=== PATIENT | male | born 1960 | race Caucasian/White ===

== ENCOUNTER 2016-07-30 19:46 | Emergency (ER) | payer OTHER ==
[~2016-07-30] VITALS: Ht 172.7 cm; Wt 98.8 kg
[~2016-07-30 19:46] MED LIST: ASPI-558 PO
--- OUTSIDE RECORDS SUMMARY | 2016-07-30 19:51 | XMS REPORT | Continuity of Care Document ---
Author Author [facility] [place]. Organization [facility] Address Unknown Phone Unavailable Allergies Medications Problems Date Dx Coded Attending Type Code Diagnosis Diagnosed By 02/14/2011 Logan 578.1 BLOOD IN STOOL 07/26/2012 TRACI RUGGIERO MD 780.79 OTHER MALAISE & FATIGUE 07/26/2012 TRACI RUGGIERO MD V76.44 SCREEN MAL NEOP PROSTATE Procedures Code [place] [address] COMPLETE CBC, AUTOMATED TRACI RUGGIERO MD 02/14/2011 88858 ASSAY THYROID STIM HORMONE TRACI RUGGIERO MD 07/26/2012 Results Test Result Range TSH - 07/26/12 09:24 TSH 0.62 UIUML 0.50-6.00 PSA Screen - 07/26/12 09:24 PSA Screen 0.78 NG/ML < 4.00 Encounters ACCT No. Visit Date/Time Discharge Status Pt. Type Provider Facility Loc./Unit Complaint [id number] 07/26/2012 11:56:00 07/26/2012 11:56:00 DIS Outpatient TRACI RUGGIERO MD [facility] ALAB [id number] 02/14/2011 11:28:00 Document Registration
[2016-07-30 19:58] VITALS: Ht 172.7 cm; Wt 98.8 kg
[2016-07-30] MEDS ORDERED: FLUORESCEIN SODIUM 1 MG/STRIP LEFT EYE ONE (20:15)
[2016-07-30] MEDS ORDERED: TETRACAINE 0.5% EYE DROPS 4ml BOTTLE LEFT EYE ONE (20:15)
--- NOTE | 2016-07-30 20:15 | ERPDOC ---
Departure Disposition Decision Date: Jul 30, 2016 Disposition Decision Time: 20:33 Disposition: 01 DISCHARGED HOME, SELF-CARE Impression Impression Impression: Primary Impression: Eyelid abrasion Qualified Codes: S00.212A - Abrasion of left eyelid and periocular area, initial encounter Severity: Moderate Condition: Stable Seen By: Mid-level only Referrals: TRACI RUGGIERO (Family) Patient Instructions: Abrasion (ED) Problems/Meds/Labs Reviewed?: Yes Medications reviewed and manag: Yes Additional Instructions: May try a cool compress to the eye to help sooth the lid. May take anything by mouth that may help-benadryl or ibuprofen. I do want you to make an appointment to follow up with your eye doctor for reevaluation of the eyelid to ensure that it does not get worse over the week. Return to ER with any increased swelling or pain. Follow up care ordered?: Yes Mental Status: Alert HPI - EENT General General Chief Complaint: Eye Problems Stated Complaint: LEFT EYE IRRITATED,BRUISED Time Seen by Provider: 20:06 Source: patient, family () Exam Limitations: no limitations HPI - EENT General Initial Comments For the last 4 days he has noticed some irritation on the left upper eyelid. He had been out in the shop working on wood on Saturday and is concerned that he may have something in his eye. He has not had any tearing or pain in the left eyeball. Feels like it has gotten slightly worse but definitely has not improved. Denies any change in vision. Pain does radiate up to the left upper eyelid region. Occurred At: home Onset/Timing: Gradual Duration: other (Over the last several days) Severity: moderate Location: eye (L) 1 - area of erythema and swelling Prearrival Treatment: no prearrival treatment Associated Symptoms: denies symptoms Quality: other ("irritation") Allergies: Coded Allergies: NKDA (Verified Allergy, Unknown, 08/11/09) Past History Patient Surgical History Appy skin cancer removal Surgical History General: appendix Family History Family History: Negative Vaccines Hx Influenza Vaccination: No Hx Pneumococcal Vaccination: No Social History Smoking Status: Never smoker Substance Use Type: does not use Alcohol Intake: none Review of Systems Constitutional Constitutional: DENIES: chills, dizziness, fatigue, fever, weakness Eyes General: DENIES: burning, dryness, exudate, itching, pain, watering Lids/Accessories: other (Some mild swelling and pain in the left eyelid with mild irritation), DENIES: erythema, swelling Vision: DENIES: blurring, change in color, double vision, loss of visual tse ENMT Ears: DENIES: drainage, pain Sinuses: DENIES: congestion, rhinorrhea Mouth/Throat: DENIES: painful swallowing, scratchy throat, sore throat Neurological General: DENIES: headache, numbness, tingling, weakness Physical Exam General General Nourishment: well nourished, well developed, appears stated age, no acute distress, adult General Body Habitus: well groomed Vitals and Pain First Documented Vital Signs Date Time Temp Pulse Resp B/P Pulse Ox O2 Delivery O2 Flow Rate FiO2 07/30/16 19:58 98.1 74 16 146/77 98 Room Air Weight: Kilograms: Height (feet): Height (inches): Triage Pain Scale: RN VS reviewed by Provider: Yes Normal Exams: Neurologic: Patient is alert, and oriented, cranial nerves, motor/sensory/ cerebellar, exams w/o gross deficits, to observation Psychiatric: Patient exhibits, appropriate attention, emotion and affect Eyes (brief) Eyes Brief: found: EOMI, PERRL, not found: foreign body, other (No swelling noted to the left upper eyelid or eyebrow region. Mild TTP along the left superior ocular bony border but no induration noted. She does have some mild erythema as well as some very slight swelling of the eyelid closer to the eyelashes. ), papilledema, trauma ENMT (brief) ENMT Brief: FOUND: TM clear, TM good light reflex, ear canals clear, mucosa moist, normal dentition, normal tonsils, NOT FOUND: lesions, nasal erythema, nasal exudate, nasal swelling, petechiae, pharnyx erythema, tonsillar deviation Differential Diagnoses Considering: Chalazion, Conjunctival Foreign Body, Conjunctivitis, Contusion, Corneal Foreign Body, Sty, Other (eyelid abrasion, eyelid cellulitis) Procedures Procedures Performed Procedures Performed: Eye Slit Lamp Exam Eye Procedure Procedure Eye : Eyes: Left eye Topical Anesthetic Drops: YES: Tetracaine drops Slit Lamp Used?: No Cornea: NOT FOUND: abrasion, foreign body, stippling, ulcer Anterior Chamber: NOT FOUND: hyphema, hypopion, wheal & flare Conjunctiva: NOT FOUND: ulcer Lids: NOT FOUND: blepharitis, chalazion, sty Fluorescein used?: Yes Fluorescein uptake?: No Comments Eyelid was everted during exam. Progress Results/Orders Orders Procedure Category Date Status Time Tetracaine 0.5% Eye PHA 07/30/16 Complete Drops (Tetracaine 0. 20:15 Fluorescein Sodium PHA 07/30/16 Complete (Ful-Gerri) 20:15 Medications Current ED Medications Tetracaine HCl (Tetracaine 0.5% Eye Drops) 1 drop O ONCE LEFT EYE ; Start 07/30 at 20:15; Stop 07/30/16 at 20:16; Status DC Fluorescein Sodium (Ful-Gerri) 1 mg O ONCE LEFT EYE ; Start 07/30/16 at 20:15; Stop 07/30/16 at 20:16; Status DC Progress Progress No FB or lesions noted in the eyeball. No FB noted with eversion of eyelid. I do not feel that this is a cellulitis as there is very mild swelling and very localized. No swelling of the left eyelid region. Will have him follow up with his eye doctor this week for reevaluation. HUA BOYER APRN Jul 30, 2016 20:15
[2016-07-30 20:39] VITALS: BP 146/77; PULSE 74; RESP 16; TEMP 98.1; O2SAT 98
--- OUTSIDE RECORDS SUMMARY | 2016-07-30 20:44 | XMS REPORT | Continuity of Care Document ---
Author Author [facility]. Organization [facility] Address Unknown Phone Unavailable Allergies Medications Problems Date Dx Coded Attending Type Code Diagnosis Diagnosed By 02/14/2011 Logan 578.1 BLOOD IN STOOL 07/26/2012 TRACI RUGGIERO MD 780.79 OTHER MALAISE & FATIGUE 07/26/2012 TRACI RUGGIERO MD V76.44 SCREEN MAL NEOP PROSTATE Procedures Code Description [place] [id number] COMPLETE CBC, AUTOMATED TRACI RUGGIERO MD 02/14/2011 [id number] ASSAY THYROID STIM HORMONE TRACI RUGGIERO MD 07/26/2012 Results Test Result Range TSH - 07/26/12 09:24 TSH 0.62 UIUML 0.50-6.00 PSA Screen - 07/26/12 09:24 PSA Screen 0.78 NG/ML < 4.00 Encounters ACCT No. Visit Date/Time Discharge Status Pt. Type Provider Facility Loc./Unit Complaint [id number] 07/26/2012 11:56:00 07/26/2012 11:56:00 DIS Outpatient TRACI RUGGIERO MD [facility] [place] [id number] 02/14/2011 11:28:00 Document Registration
== END 2016-07-30 20:39 | disposition home or self-care (01) ==
LOC: ED 19:46
DX: S00.212A Abrasion of left eyelid and periocular area, initial encounter (principal); X58.XXXA Exposure to other specified factors, initial encounter; Y93.D9 Activity, other involving arts and handcrafts; Y92.008 Other place in unspecified non-institutional (private) residence as the place of occurrence of the external cause; Y99.8 Other external cause status